=== PATIENT | male | born 1955 ===

== ENCOUNTER 2023-05-01 06:34 | Day surgery (SDC) | payer OTHER | END 2023-05-01 11:25 | disposition home or self-care (01) | LOC: AMB-ENDOS 06:34 | PROVIDERS: ATTEND Colon & Rectal Surgery | DX: D12.8 Benign neoplasm of rectum (principal); Z20.822 Contact with and (suspected) exposure to COVID-19; K57.30 Diverticulosis of large intestine without perforation or abscess without bleeding; K64.8 Other hemorrhoids ==